=== PATIENT | male | born 1950 | race Caucasian/White ===

== ENCOUNTER → 2017-11-12 | Outpatient (CLI) | payer MEDICARE ==
[~2017-11-12] MED LIST: ATOR40TA PO; AZIT250T74 PO; CEFU1TAB43 PO; IPRAAER INH; PRED20 PO; SYMB80AE INH
== END ==
LOC: HRSP 08:54
PROVIDERS: ATTEND Internal Medicine
DX: J44.9 Chronic obstructive pulmonary disease, unspecified (principal)
CPT/HCPCS: 94618

== ENCOUNTER → 2017-12-29 | Outpatient (CLI) | payer MEDICARE | LOC: HRSP 11:12 | PROVIDERS: ATTEND Internal Medicine | DX: J44.9 Chronic obstructive pulmonary disease, unspecified (principal) | CPT/HCPCS: 36600; 82805 ==